=== PATIENT | female | born 1990 | race Caucasian/White ===

== ENCOUNTER 2018-04-14 05:41 | Emergency (ER) | payer MEDICAID, OTHER ==
[~2018-04-14] VITALS: Ht 165.1 cm; Wt 69.5 kg
[~2018-04-14 05:41] MED LIST: RANI-366 PO
[2018-04-14 06:30] LABS: BASOPHILS # (AUTO) 0.1 X10'3 (0-0.2); HEMATOCRIT 37.5 % (35.0-45.0); HEMOGLOBIN 12.8 g/dl (12.0-16.0); LYMPHOCYTES # (AUTO) 3.2 X10'3 (1.1-4.8); LYMPHOCYTES % (AUTO) 40.2 % (21-51); MEAN CORPUSCULAR HEMOGLOBIN 31.4 PG (27.0-31.0); MEAN CORPUSCULAR HGB CONC 34.2 % (33.0-36.5); MEAN CORPUSCULAR VOLUME 91.7 FL (78-98); MEAN PLATELET VOLUME 8.2 FL (7.4-10.4); MONOCYTES # (AUTO) 0.5 X10'3 (0-0.9); MONOCYTES % (AUTO) 6.4 % (2-12); NEUTROPHILS # (AUTO) 3.3 X10'3 (1.8-7.7); NEUTROPHILS % (AUTO) 40.4 % (42-75); PLATELET COUNT 293 X10'3 (140-440); RED BLOOD COUNT 4.09 X10'6 (4.20-5.60); RED CELL DISTRIBUTION WIDTH 13.1 % (11.5-14.5); WHITE BLOOD COUNT 8.1 X10'3 (4.5-11.0)
[2018-04-14 06:31] LABS: INR 1.1 INR; PROTHROMBIN TIME 10.9 SECONDS (9.0-12.0)
[2018-04-14 06:40] LABS: ALANINE AMINOTRANSFERASE 25 U/L (12-78); ALBUMIN 3.9 G/DL (3.4-5.0); ALBUMIN/GLOBULIN RATIO 1.1 (1.1-1.5); ALKALINE PHOSPHATASE 86 IU/L (46-116); ANION GAP 10 (8-16); ASPARTATE AMINO TRANSFERASE 21 U/L (10-37); BILIRUBIN,TOTAL 0.3 MG/DL (0.1-1.0); BLOOD UREA NITROGEN 23 MG/DL (7-18); BUN/CREATININE RATIO 30.3 (6.6-38.0); CALCIUM 9.3 MG/DL (8.5-10.1); CHLORIDE 104 MMOL/L (99-107); CREATININE 0.76 MG/DL (0.40-0.90); GLUCOSE 85 MG/DL (70-104); POTASSIUM 4.1 MMOL/L (3.5-5.1); SODIUM 141 MMOL/L (135-145); TOTAL CARBON DIOXIDE 27.5 MMOL/L (24-32); TOTAL PROTEIN 7.5 G/DL (6.4-8.2); eGFR > 90 ML/MIN
[2018-04-14] MEDS ORDERED: OMEP40CA37 PO (06:50)
[2018-04-14 06:58] VITALS: BP 107/65
[2018-04-14 07:32] LABS: CLARITY,URINE CLEAR (Clear); COLOR,URINE YELLOW (Yellow); GLUCOSE, URINE NEGATIVE (Neg); KETONES,URINE NEGATIVE (Neg); LEUKOCYTE ESTERASE ,URINE NEGATIVE (Neg); NITRITES, URINE NEGATIVE (Neg); OCCULT BLOOD,URINE NEGATIVE (Neg); PH,URINE 5.5 (4.8-8.0); PROTEIN,URINE NEGATIVE (Neg); UROBILINOGEN,URINE 0.2 E.U/dL (0.2-1.0)
[2018-04-14 07:34] LABS: UA COLLECTION TYPE CLN CATCH MIDSTREAM
== END 2018-04-14 06:56 | disposition home or self-care (01) ==
LOC: ER 05:41
DX: K21.9 Gastro-esophageal reflux disease without esophagitis (principal); F17.210 Nicotine dependence, cigarettes, uncomplicated; Z79.899 Other long term (current) drug therapy
CPT/HCPCS: 36415; 80053; 81003; 85025; 85610; 99285

== ENCOUNTER 2018-10-20 19:07 | Emergency (ER) | payer OTHER ==
[~2018-10-20] VITALS: Ht 165.1 cm; Wt 81.1 kg
[2018-10-20 19:12] VITALS: BP 117/60
== END 2018-10-20 21:40 | disposition left against medical advice (07) ==
LOC: ER 19:07
DX: M79.643 Pain in unspecified hand (principal); M79.89 Other specified soft tissue disorders; Z53.21 Procedure and treatment not carried out due to patient leaving prior to being seen by health care provider

== ENCOUNTER 2018-11-29 08:42 | Emergency (ER) | payer MEDICAID, OTHER ==
[~2018-11-29] VITALS: Ht 165.1 cm; Wt 68.2 kg
[2018-11-29] MEDS ORDERED: buprenorphine/naloxone 8mg/2mg SL tablet SL PRN ×2 (10:15→12:05)
[2018-11-29 11:54] VITALS: BP 107/55
[2018-11-29] MEDS ORDERED: buprenorphine/naloxone 8mg/2mg SL tablet SL ONE (12:20)
== END 2018-11-29 12:30 | disposition home or self-care (01) ==
LOC: ER 08:43
DX: J06.9 Acute upper respiratory infection, unspecified (principal); F11.23 Opioid dependence with withdrawal
CPT/HCPCS: 99283

== ENCOUNTER 2019-11-25 02:57 | Emergency (ER) | payer MEDICAID ==
[~2019-11-25] VITALS: Ht 170.2 cm; Wt 77.0 kg
[2019-11-25] MEDS ORDERED: AMOX500C2 PO (03:31)
[2019-11-25] MEDS ORDERED: SULF1TAB49 PO (03:32)
[2019-11-25] MEDS ORDERED: acetaminophen 325mg tablet PO ONE (04:00)
[2019-11-25 04:12] VITALS: BP 111/64
== END 2019-11-25 04:14 | disposition home or self-care (01) ==
LOC: ER 02:58
DX: H66.91 Otitis media, unspecified, right ear (principal); F11.90 Opioid use, unspecified, uncomplicated; Z98.890 Other specified postprocedural states
CPT/HCPCS: 99283

== ENCOUNTER 2023-02-03 09:55 | Emergency (ER) | payer MEDICAID ==
[~2023-02-03] VITALS: Ht 167.6 cm; Wt 113.0 kg
[2023-02-03] MEDS ORDERED: pantoprazole 40mg IV 80 MG in normal saline 100ml IV soln 100 ML IV ONE (11:30)
[2023-02-03 11:53] LABS: MEAN CORPUSCULAR VOLUME 99.3 FL (78-98)
[2023-02-03 11:55] LABS: HEMOGLOBIN 7.1 g/dl (12.0-16.0); MEAN CORPUSCULAR HEMOGLOBIN 33.7 PG (27.0-31.0); MEAN PLATELET VOLUME 10.6 FL (7.4-10.4); PLATELET COUNT 73 X10'3 (140-440); RED BLOOD COUNT 2.09 X10'6 (4.20-5.60); RED CELL DISTRIBUTION WIDTH 16.4 % (11.5-14.5); WHITE BLOOD COUNT 5.7 X10'3 (4.5-11.0)
[2023-02-03] MEDS ORDERED: normal saline 1000ml 1,000 ML IV ONE (11:55)
[2023-02-03 12:02] LABS: APTT 25 SECONDS (22-32)
[2023-02-03 12:06] LABS: ALANINE AMINOTRANSFERASE 17 U/L (12-78); ALBUMIN 4.3 G/DL (3.4-5.0); ALBUMIN/GLOBULIN RATIO 1.1 (1.1-1.5); ALKALINE PHOSPHATASE 75 IU/L (46-116); ANION GAP 8 (8-16); ASPARTATE AMINO TRANSFERASE 42 U/L (10-37); BILIRUBIN,TOTAL 0.8 MG/DL (0.1-1.0); BLOOD UREA NITROGEN 17 MG/DL (7-18); BUN/CREATININE RATIO 22.7 (10.0-20.0); CALCIUM 9.2 MG/DL (8.5-10.1); CHLORIDE 102 MMOL/L (99-107); CREATININE 0.75 MG/DL (0.40-0.90); GLUCOSE 107 MG/DL (70-104); SODIUM 136 MMOL/L (135-145); TOTAL CARBON DIOXIDE 25.9 MMOL/L (24-32); TOTAL PROTEIN 8.1 G/DL (6.4-8.2); eGFR 90 ML/MIN
[2023-02-03 12:18] LABS: HEMATOCRIT 20.8 % (35.0-45.0)
[2023-02-03 12:48] LABS: CLARITY,URINE CLOUDY (Clear); COLOR,URINE YELLOW (Yellow); GLUCOSE, URINE NEGATIVE (Neg); KETONES,URINE TRACE mg/dl (Neg); LEUKOCYTE ESTERASE ,URINE NEGATIVE (Neg); NITRITES, URINE NEGATIVE (Neg); OCCULT BLOOD,URINE NEGATIVE (Neg); PH,URINE 5.5 (4.8-8.0); PROTEIN,URINE NEGATIVE (Neg); UROBILINOGEN,URINE 0.2 E.U/dL (0.2-1.0)
[2023-02-03 12:58] LABS: UA COLLECTION TYPE CLN CATCH MIDSTREAM
[2023-02-03 12:59] LABS: BACTERIA,URINE 2+ /HPF (Neg); HYALINE CASTS 0-3 /LPF (NEGATIVE); MUCUS STRANDS MANY /LPF (Neg); RBC,URINE 0-2 /HPF (0-2); SQUAMOUS EPITHELIAL CELL,UR MANY /LPF (FEW); WBC,URINE 0-4 /HPF (0-4)
[2023-02-03] MEDS ORDERED: cyanocobalamin 500mcg tablet PO ONE (13:00)
[2023-02-03 13:25] LABS: ANISOCYTOSIS 1+; NUCLEATED RED BLOOD CELLS 20 /100WBC (0-0); PLATELET ESTIMATE DECREASED; TOTAL CELLS COUNTED 100
[2023-02-03 13:28] LABS: POLYCHROMASIA 2+
[2023-02-03 13:32] LABS: RED BLOOD COUNT 2.01 X10'6 (4.20-5.60); RETICULOCYTE % (AUTO) 2.3 % (0.5-1.5)
[2023-02-03 13:42] LABS: MAGNESIUM 2.1 MG/DL (1.5-2.4)
[2023-02-03 13:48] LABS: OCCULT BLOOD STOOL NEGATIVE (Neg)
[2023-02-03 13:59] LABS: HIV ANTIBODY 1&2 RAPID NON-REACTIVE (Neg)
[2023-02-03 15:02] VITALS: BP 123/81
[2023-02-03 15:15] VITALS: BP 122/80
[2023-02-03 15:30] VITALS: BP 124/72
[2023-02-03 15:45] VITALS: BP 120/73
[2023-02-03 17:39] VITALS: BP 122/79
[2023-02-03 17:59] VITALS: BP 122/79
== END 2023-02-03 17:55 | disposition home or self-care (01) ==
LOC: ER 09:56
DX: D53.9 Nutritional anemia, unspecified (principal); Z79.899 Other long term (current) drug therapy
CPT/HCPCS: 36415; 36430; 71045; 80053; 81001; 82272; 82607; 82746; 83735; 84145; 84443; 85007; 85025; 85045; 85610; 85730; 86703; 86885; 86900; 86901; 86920; 93005; 96374; 99285; C9113; J3490; J7030; J7050; P9016

== ENCOUNTER 2023-02-07 12:01 | Emergency (ER) | payer MEDICAID ==
[~2023-02-07] VITALS: Ht 167.6 cm; Wt 113.6 kg
[2023-02-07 12:10] VITALS: BP 114/63
--- NOTE | 2023-02-07 12:30 | NUR ---
1225 I have reviewed and agree with all interventions, assessments performed and documented by TRANG Wan.
[2023-02-07] MEDS ORDERED: ondansetron 4mg rapidly disintigrating tab PO ONE (13:40)
[2023-02-07] MEDS ORDERED: ONDA4TAB12 PO (13:52)
[2023-02-07 14:15] LABS: URINE HCG NEGATIVE (NEG)
== END 2023-02-07 14:20 | disposition home or self-care (01) ==
LOC: ER 12:02
DX: R11.2 Nausea with vomiting, unspecified (principal); Z79.899 Other long term (current) drug therapy
CPT/HCPCS: 81025; 99283

== ENCOUNTER 2023-02-17 16:12 | Emergency (ER) | payer MEDICAID ==
[~2023-02-17] VITALS: Ht 167.6 cm; Wt 115.0 kg
[~2023-02-17 16:12] MED LIST changes: +ONDA4TAB12 PO
[2023-02-17 16:49] LABS: MEAN CORPUSCULAR HEMOGLOBIN 33.2 PG (27.0-31.0); MEAN CORPUSCULAR HGB CONC 33.9 g/dL (33.0-36.5); MEAN PLATELET VOLUME 8.6 FL (7.4-10.4); RED BLOOD COUNT 2.04 X10'6 (4.20-5.60); RED CELL DISTRIBUTION WIDTH 15.5 % (11.5-14.5)
[2023-02-17 17:01] LABS: ALANINE AMINOTRANSFERASE 14 U/L (12-78); ALBUMIN 3.8 G/DL (3.4-5.0); ALBUMIN/GLOBULIN RATIO 1.1 (1.1-1.5); ALKALINE PHOSPHATASE 73 IU/L (46-116); ANION GAP 10 (8-16); ASPARTATE AMINO TRANSFERASE 36 U/L (10-37); BILIRUBIN,TOTAL 0.7 MG/DL (0.1-1.0); BLOOD UREA NITROGEN 12 MG/DL (7-18); BUN/CREATININE RATIO 14.3 (10.0-20.0); CALCIUM 8.7 MG/DL (8.5-10.1); CHLORIDE 103 MMOL/L (99-107); CREATININE 0.84 MG/DL (0.40-0.90); GLUCOSE 112 MG/DL (70-104); POTASSIUM 3.4 MMOL/L (3.5-5.1); SODIUM 139 MMOL/L (135-145); TOTAL CARBON DIOXIDE 25.8 MMOL/L (24-32); TOTAL PROTEIN 7.3 G/DL (6.4-8.2); eGFR 79 ML/MIN
[2023-02-17 17:11] LABS: BETA HCG,QUANTITATIVE < 1.0 mIU/ml
[2023-02-17 17:21] LABS: NUCLEATED RED BLOOD CELLS 34 /100WBC (0-0); PLATELET ESTIMATE DECREASED; TOTAL CELLS COUNTED 100
[2023-02-17 17:22] LABS: ANISOCYTOSIS 1+
[2023-02-17 17:23] LABS: POLYCHROMASIA 1+
[2023-02-17 17:24] LABS: WHITE BLOOD COUNT 5.7 X10'3 (4.5-11.0)
[2023-02-17 17:25] LABS: HEMOGLOBIN 6.8 g/dl (12.0-16.0); PLATELET COUNT 43 X10'3 (140-440)
[2023-02-17 18:37] VITALS: BP 106/67
[2023-02-17 18:53] VITALS: BP 132/67
[2023-02-17 19:53] VITALS: BP 120/53
[2023-02-17 20:14] VITALS: BP 106/58
[2023-02-17 20:30] VITALS: BP 98/59
== END 2023-02-17 21:19 | disposition home or self-care (01) ==
LOC: ER 16:13
DX: D64.9 Anemia, unspecified (principal); Z79.899 Other long term (current) drug therapy
CPT/HCPCS: 36415; 36430; 80053; 84702; 85007; 85025; 86885; 86900; 86901; 86920; 99285; J7030; P9016

== ENCOUNTER 2023-03-02 19:13 | Emergency (ER) | payer MEDICAID ==
[~2023-03-02] VITALS: Ht 167.6 cm; Wt 101.6 kg
[2023-03-02 20:27] LABS: APTT 24 SECONDS (22-32); HEMOGLOBIN 8.1 g/dl (12.0-16.0); MEAN CORPUSCULAR HGB CONC 32.8 g/dL (33.0-36.5); RED BLOOD COUNT 2.69 X10'6 (4.20-5.60)
[2023-03-02 20:29] LABS: ALANINE AMINOTRANSFERASE 16 U/L (12-78); ALBUMIN 3.9 G/DL (3.4-5.0); ALBUMIN/GLOBULIN RATIO 1.1 (1.1-1.5); ALKALINE PHOSPHATASE 79 IU/L (46-116); ANION GAP 9 (8-16); ASPARTATE AMINO TRANSFERASE 20 U/L (10-37); BILIRUBIN,TOTAL 0.5 MG/DL (0.1-1.0); BLOOD UREA NITROGEN 12 MG/DL (7-18); BUN/CREATININE RATIO 16.7 (10.0-20.0); CHLORIDE 103 MMOL/L (99-107); CREATININE 0.72 MG/DL (0.40-0.90); GLUCOSE 117 MG/DL (70-104); HEMATOCRIT 24.7 % (35.0-45.0); LIPASE 87 U/L (73-393); MAGNESIUM 1.9 MG/DL (1.5-2.4); MEAN CORPUSCULAR HEMOGLOBIN 30.1 PG (27.0-31.0); MEAN CORPUSCULAR VOLUME 91.6 FL (78-98); MEAN PLATELET VOLUME 9.2 FL (7.4-10.4); SODIUM 139 MMOL/L (135-145); TOTAL CARBON DIOXIDE 26.7 MMOL/L (24-32); TOTAL PROTEIN 7.6 G/DL (6.4-8.2); eGFR > 90 ML/MIN
[2023-03-02 20:40] LABS: PLATELET COUNT 42 X10'3 (140-440)
[2023-03-02 20:59] LABS: ANISOCYTOSIS 1+; NUCLEATED RED BLOOD CELLS 12 /100WBC (0-0); PLATELET ESTIMATE DECREASED; TOTAL CELLS COUNTED 100
[2023-03-02 21:00] LABS: POLYCHROMASIA FEW
[2023-03-02 21:01] LABS: BURR CELLS FEW; ELLIPTOCYTES FEW; SMUDGE CELLS FEW
[2023-03-02 21:07] LABS: HYPERSEGMENTED NEUTROPHILS 1+
[2023-03-02 21:10] LABS: WHITE BLOOD COUNT 6.7 X10'3 (4.5-11.0)
[2023-03-02 21:57] VITALS: BP 126/77
[2023-03-02 23:12] VITALS: BP 115/74
[2023-03-02 23:30] LABS: ABSOLUTE RETICS # 21.7 X10'3 uL (32.5-133.0); RETICULOCYTE % (AUTO) 0.8 % (0.5-2.3)
[2023-03-03 00:02] VITALS: BP 104/83
== END 2023-03-03 00:24 | disposition home or self-care (01) ==
LOC: ER 19:14
DX: D64.89 Other specified anemias (principal); D69.6 Thrombocytopenia, unspecified
CPT/HCPCS: 36415; 36430; 80053; 83690; 83735; 85007; 85025; 85045; 85610; 85730; 86885; 86900; 86901; 86920; 99291; J7030; P9016; 93005

== ENCOUNTER 2023-03-08 09:36 | Emergency (ER) | payer MEDICAID ==
[~2023-03-08] VITALS: Ht 167.6 cm; Wt 113.6 kg
[2023-03-08] MEDS ORDERED: ondansetron 4mg rapidly disintigrating tab PO ONE (09:50)
[2023-03-08 10:14] LABS: HEMATOCRIT 28.1 % (35.0-45.0); HEMOGLOBIN 9.4 g/dl (12.0-16.0); WHITE BLOOD COUNT 7.3 X10'3 (4.5-11.0)
[2023-03-08 10:18] LABS: MEAN CORPUSCULAR HEMOGLOBIN 30.3 PG (27.0-31.0); MEAN CORPUSCULAR HGB CONC 33.5 g/dL (33.0-36.5); MEAN CORPUSCULAR VOLUME 90.6 FL (78-98); MEAN PLATELET VOLUME 9.8 FL (7.4-10.4); RED CELL DISTRIBUTION WIDTH 17.4 % (11.5-14.5)
[2023-03-08 10:23] LABS: ALANINE AMINOTRANSFERASE 17 U/L (12-78); ALBUMIN 3.9 G/DL (3.4-5.0); ALKALINE PHOSPHATASE 76 IU/L (46-116); ANION GAP 8 (8-16); ASPARTATE AMINO TRANSFERASE 28 U/L (10-37); BILIRUBIN,TOTAL 0.5 MG/DL (0.1-1.0); BLOOD UREA NITROGEN 9 MG/DL (7-18); BUN/CREATININE RATIO 12.3 (10.0-20.0); CALCIUM 9.2 MG/DL (8.5-10.1); CHLORIDE 103 MMOL/L (99-107); CREATININE 0.73 MG/DL (0.40-0.90); GLUCOSE 102 MG/DL (70-104); POTASSIUM 3.8 MMOL/L (3.5-5.1); SODIUM 138 MMOL/L (135-145); TOTAL CARBON DIOXIDE 27.4 MMOL/L (24-32); TOTAL PROTEIN 7.8 G/DL (6.4-8.2); eGFR > 90 ML/MIN
[2023-03-08 10:24] LABS: PLATELET COUNT 43 X10'3 (140-440)
[2023-03-08] MEDS ORDERED: PANT-47 PO (10:36)
[2023-03-08 10:49] VITALS: BP 101/66
[2023-03-08 11:01] LABS: NUCLEATED RED BLOOD CELLS 8 /100WBC (0-0); TOTAL CELLS COUNTED 100
[2023-03-08 11:02] LABS: GIANT PLATELET FEW; PLATELET ESTIMATE DECREASED
[2023-03-08 11:03] LABS: ANISOCYTOSIS 1+; POLYCHROMASIA 1+
== END 2023-03-08 10:42 | disposition home or self-care (01) ==
LOC: ER 09:36
DX: K92.0 Hematemesis (principal); R53.1 Weakness; D64.9 Anemia, unspecified
CPT/HCPCS: 80053; 85007; 85025; 99283

== ENCOUNTER 2023-03-20 10:30 | Day surgery (SDC) | payer MEDICAID ==
[~2023-03-20] VITALS: Ht 167.6 cm; Wt 111.4 kg
[~2023-03-20 10:30] MED LIST changes: +PANT-47 PO
[2023-03-20] MEDS ORDERED: ONDA4TAB12 PO (11:39)
[2023-03-20] MEDS ORDERED: fentaNYL/PF 50MCG/1 ML 2ML syringe ONE (12:37)
[2023-03-20] MEDS ORDERED: LIDOcaine Viscous 15ml cup ONE (12:38)
[2023-03-20] MEDS ORDERED: MIDAZolam 1 MG/ML 5ML VIAL ONE (12:38)
[2023-03-20 13:00] VITALS: BP 114/61
[2023-03-20 13:10] VITALS: BP 121/73
[2023-03-20 13:20] VITALS: BP 114/75
[2023-03-20 13:40] VITALS: BP 124/77
[2023-03-20 14:01] VITALS: BP 128/84
== END 2023-03-20 13:45 | disposition home or self-care (01) ==
LOC: GI LAB 10:30
PROVIDERS: ATTEND Internal Medicine Gastroenterology
DX: D50.0 Iron deficiency anemia secondary to blood loss (chronic) (principal); Z87.891 Personal history of nicotine dependence
CPT/HCPCS: 43239; 99152; J2250; J3010; J7030; Z7512